=== PATIENT | male | born 1940 | race Caucasian/White ===

== ENCOUNTER → 2024-10-25 11:02 | Outpatient (BNVA) | payer MEDICARE, SELFPAY | PROVIDERS: PCP Family Medicine; Referring Provider Family Medicine; Visit Provider Specialist | DX: G20.B2 Parkinson's disease with dyskinesia, with fluctuations (principal); G51.32 Clonic hemifacial spasm, left | CPT/HCPCS: 99205 ==

== ENCOUNTER → 2024-11-25 13:42 | Outpatient (BNVA) | payer MEDICARE, BC, SELFPAY | PROVIDERS: PCP Family Medicine; Visit Provider Specialist | DX: G51.32 Clonic hemifacial spasm, left (principal); G20.B2 Parkinson's disease with dyskinesia, with fluctuations | CPT/HCPCS: 64612; 99213; J0585; J9999 ==

== ENCOUNTER 2024-12-12 13:14 | Emergency (ER) | payer MEDICARE, BC, SELFPAY ==
--- NOTE | 2024-12-12 13:20 | XRR_ITS ---
PROCEDURE INFORMATION: Exam: XR Chest Exam date and time: 12/12/2024 1:24 PM Age: 84 years old Clinical indication: Other: Weakness TECHNIQUE: Imaging protocol: Radiologic exam of the chest. Views: 1 view. COMPARISON: No relevant prior studies available. FINDINGS: Tubes, catheters and devices: Embolization coils in the upper abdomen. Lungs: Unremarkable. No consolidation. Pleural spaces: Unremarkable. No pleural effusion. No pneumothorax. Heart/Mediastinum: See Vasculature finding. Vasculature: Borderline cardiomegaly and uncoiling of the thoracic aorta. Bones/joints: Unremarkable. XR/XR chest 1V portable [id number] IMPRESSION: No acute findings.
[2024-12-12 13:21] VITALS: BP 124/79; PULSE 56; RESP 17; TEMP 36.6; O2SAT 94; BMI 20.9
[2024-12-12 13:27] LABS: Glucose Point of Care 115 mg/dL (70-110)
[2024-12-12 15:12] LABS: Basophils # 0.1 10^3/uL (0.0-0.1); Basophils % 0.8 %; Eosinophils # 0.1 10^3/uL (0.0-0.8); Eosinophils % 1.9 %; Lymphocytes # 1.5 10^3/uL (0.8-4.8); Lymphocytes % 20.2 %; Mean Corpuscular HGB Conc 32.1 g/dL (30-55); Mean Corpuscular Hemoglobin 30.5 pg (27-33); Mean Corpuscular Volume 95.1 fl (82-101); Mean Platelet Volume 13.2 fL (7.4-10.4); Monocytes # 0.8 10^3/uL (0.2-0.9); Monocytes % 10.7 %; Neutrophils # 4.97 10^3/uL (1.8-7.7); Neutrophils % 65.9 %; Nucleated Red Blood Cells % 0 %; Platelet Count 173 10^3/cmm (157-399); Red Blood Count 4.52 10^6/uL (3.85-5.65); Red Cell Distribution Width 13.4 % (12.1-15.1); White Blood Count 7.54 10^3/uL (3.29-11.43)
[2024-12-12 15:25] LABS: INR 0.99 (0.8-1.2)
[2024-12-12 15:42] LABS: Alanine Aminotransferase < 5 U/L (0-41); Alkaline Phosphatase 82 U/L (40-130); Anion Gap 11.8 (5-19); Aspartate Amino Transferase 7 U/L (0-40); Blood Urea Nitrogen 11 mg/dL (8-23); Carbon Dioxide 36 mmol/L (22-29); Chloride 99 mmol/L (98-107); Creatinine Clr Calc Pharmacy 75.2014; Globulin 2.2 g/dL (1.3-4.6); Glucose 102 mg/dL (65-115); Osmolality Calculated 298 mOsm/kg (285-295); Sodium 144 mmol/L (136-145); Total Bilirubin 0.7 mg/dL (0.15-1.2); Total Protein 6.2 g/dL (6.6-8.7)
[2024-12-12 15:49] LABS: Potassium 2.8 mmol/L (3.5-5.1)
--- NOTE | 2024-12-12 16:11 | CTR_ITS ---
PROCEDURE INFORMATION: Exam: CT Head Without Contrast Exam date and time: 12/12/2024 4:59 PM Age: 84 years old Clinical indication: Other: Facial droop lt side TECHNIQUE: Imaging protocol: Computed tomography of the head without contrast. Radiation optimization: All CT scans at this facility use at least one of these dose optimization techniques: automated exposure control; mA and/or kV adjustment per patient size (includes targeted exams where dose is matched to clinical indication); or iterative reconstruction. COMPARISON: No relevant prior studies available. RADIATION DOSE METRICS: Total DLP (mGy-cm): 1306.88 FINDINGS: Brain: There is mild chronic periventricular white matter ischemic change. There is no evidence of mass effect, infarct or hemorrhage. Cerebral ventricles: No ventriculomegaly. No midline shift. Paranasal sinuses: Visualized sinuses are unremarkable. No fluid levels. Mastoid air cells: Visualized mastoid air cells are well aerated. Bones: Unremarkable. No acute fracture. Soft tissues: Unremarkable. CT/CT head wo con* [id number] IMPRESSION: 1. No acute findings. 2. Mild chronic white matter ischemic changes noted
--- NOTE | 2024-12-12 16:13 | ECG_ITS ---
[facility] Test Date: 2024-12-12 Pat Name: Gonzales Naik Department: Room: Gender: Male [place]: : 1940 Requested By: Peter García Order Number: [id number] Brittney MD: Theo Kaye M.D. Measurements Intervals Larose Rate: 52 P: 21 MD: 207 QRS: -47 QRSD: 108 T: 29 QT: 386 QTc: 360 Interpretive Statements SINUS BRADYCARDIA POSSIBLE LEFT ATRIAL ENLARGEMENT [-0.1mV P-WAVE IN V1/V2] LEFT AXIS DEVIATION [QRS AXIS < -30] INCOMPLETE RIGHT BUNDLE BRANCH BLOCK [90+ ms QRS DURATION, TERMINAL R IN V1/V2, 40+ ms S IN I/aVL/V4/V5/V6] SEPTAL MYOCARDIAL INFARCTION , OF INDETERMINATE AGE [40+ ms Q WAVE IN V1/V2] No previous ECG available for comparison Electronically Signed On 12-12-2024 21:53:53 CDT by Theo Kaye M.D. [email or web address]
[2024-12-12] MEDS: potassium chloride ER 20 mEq Tablet 80 MEQ PO (16:31)
--- NOTE | 2024-12-12 16:31 | ED_ITS ---
HPI - Neuro Symptoms/Deficit 2 General: Chief Complaint: Neuro Symptoms/Deficit Stated Complaint: left sided weakness Time Seen by Provider: 12/12/24 16:10 Source: patient Mode of arrival: ambulatory Limitations: no limitations History of Present Illness: 84-year-old male whose had a history of gait instability due to Parkinson's he is scheduled outpatient MRI today due to his gait instability when he arrived he had a facial droop on the left side a rapid response was called. He states he had that facial droop since . He denies any other symptoms he denies any new generalized weakness no slurred speech no vision changes. Associated symptoms: Deny chest pain, headache(s), nausea or vomiting Related Data Home Medications ?Medication ?Instructions ?Recorded ?Confirmed esomeprazole magnesium 20 mg 20 mg PO DAILY 10/25/24 0 11/25/24 capsule,delayed release (Nexium 24HR) fludrocortisone 0.1 mg tablet 0.2 mg PO QDAY 10/25/24 11/25/24 gabapentin 300 mg capsule 900 mg PO QDAY 10/25/2410/29 tamsulosin 0.4 mg capsule 0.4 mg PO QDAY 10/25/2410/29 trazodone 100 mg tablet 100 mg PO QDAY 10/25/2410/29 Previous Rx's ?Medication ?Instructions ?Recorded amantadine HCl 100 mg capsule 100 mg PO BID #180 caps 10/25/24 carbidopa 25 mg-levodopa 100 mg 3 tab PO QID #360 tabs 10/25/24 tablet aspirin 81 mg tablet 81 mg PO DAILY #30 tabs 11/27 12/21 Allergies Allergy/AdvReac Type Severity Reaction Status Date / Time No Known Allergies Allergy Verified 11/25/24 14:18 Review of Systems 2 Const: Denies: fever(s), chills, body aches or change in appetite Eyes: Denies: blurry vision or eye discomfort ENMT: Denies: throat pain or dental pain Card: Denies: chest pain Resp: Denies: dyspnea GI: Denies: abdominal pain, nausea, vomiting or diarrhea Musc: Denies: neck pain or back pain Skin/Breast: Denies: rash Neuro: Denies: headache(s) PFSH ED 2 PFSH: Social History Smoking and tobacco/nicotine status: never used tobacco/nicotine NIH stroke score 2 NIHSS: Level Of Consciousness - 1a: 0 Level Of Consciousness Questions - 1b: Both Correct Level Of Consciousness Commands - 1c: Both Correct Best Gaze - 2: Normal Visual Barboza - 3: No Visual Loss Facial Palsy - 4: Minor Paralysis Motor Arm Right - 5: No Drift Motor Arm Left - 5: No Drift M otor Leg Right - 6: No Drift Motor Leg Left - 6: No Drift Limb Ataxia - 7: Absent Sensory - 8: Normal Best Language - 9: No Aphasia Dysarthia - 10: Normal Extinction And Inattention - 11: 0 Score: Total Score: 1 Physical Exam 2 Const: COMMON NORMALS: no acute distress, patient oriented x3 and healthy appearing HENMT: COMMON NORMALS: normocephalic and atraumatic HEAD & SCALP: n ormocephalic and atraumatic Eye: COMMON NORMALS: Equal, round and reactive pupils present and EOMs intact bilaterally VISUAL BARBOZA: No peripheral vision loss, No central vision loss, No left visual field cut, No right visual field cut, No bitemporal visual field cut, No binasal visual field cut and No visual field cut by quadrant PUPIL: Y es Equal, round and reactive pupils present Neck/C-Spine: COMMON NORMALS: full ROM and supple Chest: COMMONS NORMALS: normal inspection of the chest Resp: COMMON NORMALS: normal respiratory effort, No retractions, No use of accessory muscles and clear to auscultation bilaterally AUSCULTATION: clear to auscultation bilaterally Cardio: COMMON NORMALS: regular rate, regular rhythm and No murmurs present (Cardio) RATE: regular rate RHYTHM: regular rhythm Extremity: COMMON NORMALS: normal to inspection and full ROM Neuro: COMMON NORMALS: patient oriented x3, moves all extremities and no focal motor deficits SPEECH: speech normal MOTOR EXAM: 5/5 motor strength present throughout OTHER: Slight facial droop noted to left side of face Psych: COMMON NORMALS: mental status grossly normal, Normal thought process present and cooperative THOUGHT PROCESS: Normal thought process present Skin: COMMON NORMALS: no rashes or lesions noted and no wounds GENERAL SKIN EXAM: no rashes or lesions noted Course 2 Vital Signs: Vital signs: Vital Signs Temperature 97.8 F 12/12/24 13:21 Pulse Rate 52 L 12/12/24 17:38 Respiratory Rate 16 12/12/24 17:38 Blood Pressure 175/90 12/12/24 17:38 Pulse Oximetry 97 12/12/24 17:38 Oxygen Delivery Me thod Room Air 12/12/24 13:21 MDM - Neuro Symptoms/Deficit Medical Decision Making Patient presents here with facial droop; since he is otherwise well- appearing no other signs of stroke head CT was normal I spoke to his neurologist Dr. Caruso will place him on a baby aspirin he is to follow-up with her return if worsening he understands agrees to plan. Medical Records I reviewed the patient's medical records. Lab Data I reviewed the patient's lab results. 12/12/24 14:57 12/12/24 14:57 Radiology Impressions Chest X-Ray 12/12/24 13:20 IMPRESSION: No acute findings. Head CT 12/12/24 16:11 IMPRESSION: 1. No acute findings. 2. Mild chronic white matter ischemic changes noted Laboratory Results WBC 7.54 10^3/uL (3.29-11.43) 12/12/24 14:57 RBC 4.52 10^6/uL (3.85-5.65) 12/12/24 14:57 Hgb 13.80 g/dL (11.27-16.99) 12/12/24 14:57 Hct 43.0 % (37-53) 12/12/24 14:57 MCV 95.1 fl (82-101) 12/12/24 14:57 MCH 30.5 pg (27-33) 12/12/24 14:57 MCHC 32.1 g/dL (30-55) 12/12/24 14:57 RDW 13.4 % (12.1-15.1) 12/12/24 14:57 Plt Count 173 10^3/cmm (157-399) 12/12/24 14:57 MPV 13.2 fL (7.4-10.4) H 12/12/24 14:57 Neut % (Auto) 65.9 % 12/12/24 14:57 Lymph % (Auto) 20.2 % 12/12/24 14:57 Weber % (Auto) 10.7 % 12/12/24 14:57 Eos % (Auto) 1.9 % 12/12/24 14:57 Baso % (Auto) 0.8 % 12/12/24 14:57 Neut # (Auto) 4.97 10^3/uL (1.8-7.7) 12/12/24 14:57 Lymph # (Auto) 1.5 10^3/uL (0.8-4.8) 12/12/24 14:57 Weber # (Auto) 0.8 10^3/uL (0.2-0.9) 12/12/24 14:57 Eos # (Auto) 0.1 10^3/uL (0.0-0.8) 12/12/24 14:57 Baso # (Auto) 0.1 10^3/uL (0.0-0.1) 12/12/24 14:57 Nucleated RBC % (auto) 0 % 12/12/24 14:57 Nucleated RBCs # 0.0 /100WBC 12/12/24 14:57 PT 13.80 SECONDS (12.1-14.9) 12/12/24 14:57 INR 0.99 (0.8-1.2) 12/12/24 14:57 Sodium 144 mmol/L (136-145) 12/12/24 14:57 Potassium 2.8 mmol/L (3.5-5.1) L* 12/12/24 14:57 Chloride 99 mmol/L (98-107) 12/12/24 14:57 Carbon Dioxide 36 mmol/L (22-29) H 12/12/24 14:57 Anion Gap 11.8 (5-19) 12/12/24 14:57 BUN 11 mg/dL (8-23) 12/12/24 14:57 Creatinine 0.8 mg/dL (0.7-1.2) 12/12/24 14:57 GFR Calculation Not Reportable 12/12/24 14:57 Glucose 102 mg/dL (65-115) 12/12/24 14:57 POC Glucose 115 mg/dL (70-110) H 12/12/24 13:24 Calculated Osmolality 298 mOsm/kg (285-295) H 12/12/24 14:57 Calcium 9.0 mg/dL (8.5-10.5) 12/12/24 14:57 Magnesium 2.2 mg/dL (1.7-2.3) 12/12/24 14:57 Total Bilirubin 0.7 mg/dL (0.15-1.2) 12/12/24 14:57 AST 7 U/L (0-40) 12/12/24 14:57 ALT < 5 U/L (0-41) 12/12/24 14:57 Alkaline Phosphatase 82 U/L (40-130) 12/12/24 14:57 Total Protein 6.2 g/dL (6.6-8.7) L 12/12/24 14:57 Albumin 4.0 g/dL (3.5-5.2) 12/12/24 14:57 Globulin 2.2 g/dL (1.3-4.6) 12/12/24 14:57 TSH 1.40 uIU/mL (0.27-4.20) 12/12/24 14:57 Urine Color Yellow (Yellow) 12/12/24 16:20 Urine Appearance Clear (CLEAR) 12/12/24 16:20 Urine pH 7.0 (5-7) 12/12/24 16:20 Ur Specific [place] 1.015 (1.005-1.030) 12/12/24 16:20 Urine Protein Negative (Negative) 12/12/24 16:20 Urine Glucose (UA) Negative (Normal) 12/12/24 16:20 Urine Ketones Trace (Negative) 12/12/24 16:20 Urine Blood Negative (Negative) 12/12/24 16:20 Urine Nitrate Negative (Negative) 12/12/24 16:20 Urine Bilirubin Negative (Negative) 12/12/24 16:20 Urine Urobilinogen 1.0 mg/dL (Negative) 12/12/24 16:20 Ur Leukocyte Esterase Negative (Negative) 12/12/24 16:20 Urine RBC 0-2 /hpf (0-2) 12/12/24 16:20 Urine WBC 0-5 /hpf (0-5) 12/12/24 16:20 Ur Squamous Epith Cells 0-5 /hpf (0-5) 12/12/24 16:20 Amorphous Sediment Not Reportable 12/12/24 16:20 Urine Bacteria None seen /hpf (NONE) 12/12/24 16:20 Hyaline Casts 0.81 /lpf 12/12/24 16:20 All radiology interpretation(s) finalized by discharge EKG Data EKG 1: I personally reviewed and interpreted this EKG as follows: EKG interpretation date: 12/12/24 EKG interpretation time: 16:13 Interpretation: sinus caden hr [address] elevation qrs 108 qtc 365 Discharge Plan Discharge Patient Disposition: Home Clinical Impression: Facial droop Condition: Stable Prescriptions: New aspirin 81 mg tablet 81 mg PO DAILY Qty: 30 0RF No Action esomeprazole magnesium [Nexium 24HR] 20 mg capsule,delayed release(DR/EC) 20 mg PO DAILY trazodone 100 mg tablet 100 mg PO QDAY fludrocortisone 0.1 mg tablet 0.2 mg PO QDAY tamsulosin 0.4 mg capsule 0.4 mg PO QDAY gabapentin 300 mg capsule 900 mg PO QDAY amantadine HCl 100 mg capsule 100 mg PO BID Qty: 180 3RF carbidopa-levodopa 25-100 mg tablet 3 tab PO QID Qty: 360 3RF Discharge Orders: Discharge ED (Routine); Ordered 12/12/24 Ordered By: Peter García Referrals: Nickie Caruso MD [Physician, Neurology] - 4-7 days Colton Urrutia MD [Primary Care Provider, Family Practice] Discharge Diet: Advance as tolerated Discharge Activity: Resume usual activity Patient Instructions: Weakness (ED) Print Language: Mexican Coding Level of Care Code ED [employer] Agent for Bradford Rodriguez
[2024-12-12 16:34] VITALS: BP 183/80; PULSE 54; RESP 16; O2SAT 97
[2024-12-12 16:47] LABS: Bilirubin Urine Negative (Negative); Blood Urine Negative (Negative); Glucose Urine UA Negative (Normal); Ketones Urine Trace (Negative); Leukocyte Esterase Urine Negative (Negative); Nitrate Urine Negative (Negative); Protein Urine Negative (Negative); Specific Gravity, Urine 1.015 (1.005-1.030); Urine Appearance Clear (CLEAR); Urine Color Yellow (Yellow)
[2024-12-12 16:49] LABS: Add Urine Microscopic? YES; Bacteria Urine None Seen /hpf; Hyaline Casts Urine 0.81 /lpf; RBC Urine 0-2 /hpf (0-2); Squamous Epithelial Cell Urine 0-5 /hpf (0-5); WBC Urine 0-5 /hpf (0-5)
[2024-12-12 17:38] VITALS: BP 175/90; PULSE 52; RESP 16; O2SAT 97
[2024-12-12 17:39] LABS: Magnesium 2.2 mg/dL (1.7-2.3)
[2024-12-12 17:41] VITALS: BP 175/90; PULSE 52; RESP 16; O2SAT 95
== END 2024-12-12 17:47 | disposition home or self-care (01) ==
PROVIDERS: Emergency Provider Emergency Medicine; PCP Family Medicine
DX: R29.810 Facial weakness (principal)
CPT/HCPCS: 36415; 36416; 70450; 71045; 80053; 81001; 82962; 83735; 84443; 85025; 85610; 93005; 99285; J9999

== ENCOUNTER 2024-12-21 14:11 | Outpatient (CLI) | payer MEDICARE, BC, SELFPAY ==
--- NOTE | 2024-12-21 14:30 | MR_ITS ---
WS: [id number] MRI HEAD WITHOUT CONTRAST TECHNIQUE: Sagittal T1, T2 axial, T2 axial FLAIR, axial and coronal T1 images, axial susceptibility weighted imaging, axial diffusion weighted images, and coronal T2 images were obtained. CLINICAL INFORMATION: G20.B2 - Parkinson's disease with dyskinesia, with fluctu... COMPARISON: CT 12/12/2024 FINDINGS: No evidence of restricted diffusion to suggest acute ischemia. Ventricular system and basilar cisterns are patent. Moderate small vessel changes. Moderate parenchymal volume loss. Small vessel changes in the indira. A few tiny chronic lacunar infarcts in the LEFT basal ganglia. Prominent perivascular spaces in the basal ganglia. Normal posterior fossa. Normal vascular flow voids at the skull base. No extra- axial fluid collections. Mucosal thickening LEFT maxillary sinus. Mild mucosal thickening in the ethmoid air cells. Mastoid air cells are well aerated. Normal optic chiasm and pituitary infundibulum. Moderate symmetric atrophy temporal lobes and hippocampal formations. Several small punctate foci of hemosiderin in the LEFT temporal lobe. MR/MR head wo con* [id number] IMPRESSION: 1. No evidence of restricted diffusion to suggest acute ischemia. 2. Moderate small vessel changes with moderate parenchymal volume loss. Small vessel changes in the indira. 3. 2 or 3 tiny foci of hemosiderin in the LEFT temporal lobe. 4. Moderate symmetric atrophy temporal lobes and hippocampal formations. 5. Few tiny chronic lacunar infarcts in the LEFT basal ganglia. Prominent edmundo vascular spaces in the basal ganglia bilaterally. 6. Mucosal thickening in the LEFT maxillary sinus.
--- NOTE | 2024-12-21 15:15 | MR_ITS ---
WS: [id number] MRI LUMBAR SPINE NONCONTRAST TECHNIQUE: Sagittal T1, T2 and STIR imaging. Axial T1 and T2 imaging. CLINICAL INFORMATION: R26.81 - Unsteadiness on feet COMPARISON: None. FINDINGS: Lumbar scoliosis. Advanced spondylitic changes with multilevel degenerative disc disease. Abdominal aorta measuring 3.2 x 3.1 cm AP by transverse. Adrenal glands are normal. L1-L2: Mild central canal stenosis. Mild disc bulge with endplate ridging. Mild facet arthropathy. L2-L3: Disc osteophyte complex with endplate ridging. Impingement on the LEFT greater than RIGHT subarticular recess. Moderate facet arthropathy. Mild LEFT bony foraminal narrowing. L3-L4: Slight retrolisthesis. Disc osteophyte complex with mild central canal stenosis. Impingement of the LEFT greater than RIGHT subarticular recess. Moderate facet arthropathy. Moderate LEFT and mild RIGHT bony foraminal narrowing. L4-L5: Disc osteophyte complex with endplate ridging. Mild central canal stenosis. Narrowing of the RIGHT greater than LEFT subarticular recess. Moderate RIGHT greater than LEFT bony foraminal narrowing. Moderate facet arthropathy. L5-S1: Disc osteophyte complex with endplate ridging. Slight impingement of the traversing LEFT greater than RIGHT S1 nerve roots. Moderate RIGHT bony foraminal narrowing. Moderate facet arthropathy. Visualized pelvic bony structures: Normal. Paravertebral soft tissues: Normal. Partially visualized ectatic abdominal aorta measuring 3.2 x 3.2 cm AP by transverse. Adrenal glands appear normal. Peripelvic renal cysts. MR/MR lumbar spine wo con* [id number] IMPRESSION: 1. Lumbar scoliosis. No acute compression. 2. Mild multilevel central canal stenosis with narrowing of the subarticular r ecess L1-2 L2-3 L3-4 and L4-5. 3. Impingement worsening bilateral L3-4 subarticular recess and RIGHT L4-5. 4. Moderate foraminal narrowing worse at LEFT L3-4, RIGHT L4-5, and RIGHT L5-S 1. 5. Ectatic upper abdominal aorta partially visualized. This can be followed up with ultrasound or CTA abdomen/pelvis. No prior abdominal imaging
== END 2024-12-21 14:12 | disposition home or self-care (01) ==
LOC: RAD 14:12
PROVIDERS: PCP Family Medicine; Visit Provider Specialist
DX: G20.B2 Parkinson's disease with dyskinesia, with fluctuations (principal); G51.32 Clonic hemifacial spasm, left; R26.81 Unsteadiness on feet; M41.86 Other forms of scoliosis, lumbar region; R93.0 Abnormal findings on diagnostic imaging of skull and head, not elsewhere classified; G31.89 Other specified degenerative diseases of nervous system; J34.89 Other specified disorders of nose and nasal sinuses; M48.061 Spinal stenosis, lumbar region without neurogenic claudication; M48.07 Spinal stenosis, lumbosacral region; I77.811 Abdominal aortic ectasia; M47.896 Other spondylosis, lumbar region; M51.369 Other intervertebral disc degeneration, lumbar region without mention of lumbar back pain or lower extremity pain; M25.78 Osteophyte, vertebrae; M47.897 Other spondylosis, lumbosacral region; N28.1 Cyst of kidney, acquired
CPT/HCPCS: 70551; 72148

== ENCOUNTER → 2025-03-02 12:23 | Outpatient (BNVA) | payer MEDICARE, BC, SELFPAY | PROVIDERS: PCP Family Medicine; Visit Provider Specialist | DX: G51.32 Clonic hemifacial spasm, left (principal); G20.B2 Parkinson's disease with dyskinesia, with fluctuations | CPT/HCPCS: 64612; 99215; J0585; J9999 ==

== ENCOUNTER → 2025-06-08 10:43 | Outpatient (BNVA) | payer MEDICARE, BC, SELFPAY | PROVIDERS: PCP Family Medicine; Visit Provider Specialist | DX: G51.32 Clonic hemifacial spasm, left (principal); G20.B2 Parkinson's disease with dyskinesia, with fluctuations; R03.0 Elevated blood-pressure reading, without diagnosis of hypertension | CPT/HCPCS: 64612; 99214; J0585; J9999 ==